=== PATIENT | male | born 1975 | race Caucasian/White ===

== ENCOUNTER 2020-02-13 13:12 | Outpatient (RCR) | payer OTHER | END 2020-03-08 | disposition home or self-care (01) | LOC: WSOT | DX: S62.602A Fracture of unspecified phalanx of right middle finger, initial encounter for closed fracture (principal) ==

== ENCOUNTER 2020-04-29 12:45 | Outpatient (RCR) | payer OTHER | END 2020-06-07 | disposition home or self-care (01) | LOC: WSOT | DX: S62.621A Displaced fracture of middle phalanx of left index finger, initial encounter for closed fracture (principal) ==